=== PATIENT | female | born 1970 | race African-American/Black ===

== ENCOUNTER 2019-12-12 18:19 | Emergency (ER) | payer MEDICAID ==
[~2019-12-12] VITALS: Ht 170.2 cm; Wt 73.0 kg
[2019-12-12 19:09] LABS: BASOPHILS % 0.8 % (0.0-2.0); EOSINOPHILS % 0.8 % (0.0-5.0); HEMATOCRIT. 38.4 % (36.0-48.0); HEMOGLOBIN. 13.2 g/dL (12.0-16.0); LYMPHOCYTES % 12.7 % (20.0-50.0); MEAN CORPUSCULAR HEMOGLOBIN 31.9 pg (28.0-32.0); MEAN CORPUSCULAR VOLUME 92.9 fL (81.0-99.0); MEAN PLATELET VOLUME 8.6 fl (7.4-10.4); MONOCYTES % 3.5 % (2.0-8.0); NEUTROPHILS % 82.2 % (40.0-76.0); PLATELET 237 x1000/uL (130-400); RED BLOOD CELL COUNT 4.14 mill/uL (4.2-5.4); RED CELL DISTRIBUTION WIDTH 13.5 % (11.6-14.6)
[2019-12-12 19:15] LABS: CHLORIDE 107 mEq/L (98-107)
[2019-12-12 19:18] LABS: ETHANOL BLOOD < 10 mg/dL; INR 0.9; PROTHROMBIN TIME 10.1 sec (9.6-11.0)
[2019-12-12 19:21] LABS: LDL CHOLESTEROL 94 mg/dL (5-100)
[2019-12-12 19:25] LABS: HCG SCREEN NEGATIVE
[2019-12-12] MEDS ORDERED: ASPIRIN 325MG EC TABLET PO ONE (21:15)
[2019-12-12] MEDS ORDERED: MORPHINE SULFATE 4 MG/ML CPJ (NOT FOR IM USE) IV ONE (21:15)
[2019-12-12] MEDS ORDERED: IOHEXOL-350 100 ML BOTTLE ONE (21:56)
[2019-12-12 22:44] LABS: CLARITY URINE CLEAR (CLEAR); COLOR URINE YELLOW (YELLOW); KETONES URINE NEGATIVE (NEGATIVE); LEUKOCYTE ESTERASE URINE NEGATIVE (NEGATIVE); NITRITE URINE NEGATIVE (NEGATIVE); OCCULT BLOOD URINE NEGATIVE (NEGATIVE); PH URINE 8.5 (4.5-8.0); PROTEIN URINE NEGATIVE (NEGATIVE); SPECIFIC GRAVITY URINE 1.079 (1.005-1.030)
[2019-12-12 22:57] LABS: *BARBITURATES SCREEN URINE NEGATIVE (NEGATIVE); *BENZODIAZEPINES SCREEN URINE NEGATIVE (NEGATIVE); *COCAINE SCREEN URINE NEGATIVE (NEGATIVE); CANNABINOID URINE SCREEN NEGATIVE (NEGATIVE); METHADONE URINE SCREEN NEGATIVE (NEGATIVE); OPIATES URINE SCREEN NEGATIVE (NEGATIVE); PHENCYCLIDINE URINE SCREEN NEGATIVE (NEGATIVE)
[2019-12-12 23:16] LABS: *AMPHETAMINES SCREEN URINE PRESUMTIVE POSITIVE (NEGATIVE)
[2019-12-13 05:31] VITALS: BP 150/83
== END 2019-12-13 07:02 | disposition short-term general hospital (02) ==
LOC: ER 18:34 → EDBEDREQ 22:45 → EDBEDREQTM 22:45 → EDBEDREQSVC 22:46 → ER 12-13 07:02 → ENRESERV 12-13 07:38 → CANRESERV 12-13 07:39 → ENRESERV 12-13 07:39 → CANBEDREQ 12-13 07:44
DX: I63.9 Cerebral infarction, unspecified (principal); R51 Headache; I11.9 Hypertensive heart disease without heart failure; Z97.5 Presence of (intrauterine) contraceptive device
CPT/HCPCS: 36415; 70450; 70496; 70498; 71045; 80053; 80305; 80320; 81003; 82962; 83721; 84484; 84703; 85025; 85610; 93005; 96374; 99285; J2270; Q9967; G0480